=== PATIENT | male | born 1995 | race African-American/Black ===

== ENCOUNTER 2024-05-02 21:36 | Inpatient (IN) | payer OTHER ==
[2024-05-02 22:56] LABS: VENOUS BASE EXCESS -4.3 mmol/L (-2-2); VENOUS O2 SATURATION 64.8 % (70-80); VENOUS PCO2 42.2 mmHg (38-52); VENOUS PH 7.326 (7.310-7.410)
[2024-05-02 23:00] LABS: BASO % 0.7 % (0-2.0); EOS % 1.3 % (0-4.5); HEMOGLOBIN 15.9 GM/dL (11.7-16.9); LYMPH % 7.3 % (8-40); MCHC 33.1 g/dl (32.0-35.9); MEAN CELL VOLUME 81.6 fl (80-96); MEAN PLT VOLUME 9.7 fl (7.5-11.1); MONO % 8.8 % (3.8-10.2); NEUT % 81.9 % (42.8-82.8); PLATELET COUNT 216 10^3/uL (134-434); RBC 5.88 M/mm3 (4.00-5.60); RDW 13.7 % (11.9-15.9); WHITE BLOOD COUNT 7.9 K/mm3 (4.0-10.0)
[2024-05-02 23:03] LABS: INR 0.95 (0.83-1.09); PROTHROMBIN TIME (PATIENT) 10.5 SEC (9.7-13.0)
[2024-05-02 23:14] LABS: CHLORIDE 94 mmol/L (98-107); POTASSIUM 4.9 mmol/L (3.5-5.1); SODIUM 133 mmol/L (136-145)
[2024-05-02 23:16] LABS: ALBUMIN 4.1 g/dl (3.4-5.0); CALCIUM 9.3 mg/dL (8.5-10.1)
[2024-05-02 23:17] LABS: ANION GAP 16 mmol/L (4-13); BLOOD UREA NITROGEN 12.5 mg/dL (7-18); CO2 23 mmol/L (21-32); GLUCOSE,RANDOM 392 mg/dL (74-106)
[2024-05-02 23:20] LABS: CREATININE 1.2 mg/dL (0.55-1.3); SGOT/AST 29 U/L (15-37); SGPT/ALT 28 U/L (13-61)
[2024-05-02 23:22] LABS: BILIRUBIN,TOTAL 0.8 mg/dL (0.2-1); TOT PROT 7.4 g/dl (6.4-8.2)
[2024-05-02 23:23] LABS: ALK PHOS 109 U/L (45-117)
[2024-05-02 23:47] LABS: PH,URINE 5.5 (5.0-8.0); URINE APPEARANCE CLEAR; URINE BILIRUBIN NEGATIVE (NEGATIVE); URINE COLOR YELLOW; URINE GLUCOSE (UA) 3+ (NEGATIVE); URINE KETONE 4+ (NEGATIVE); URINE LEUK ESTERASE NEGATIVE (NEGATIVE); URINE NITRITE NEGATIVE (NEGATIVE); URINE PROTEIN NEGATIVE (NEGATIVE); URINE UROBILINOGEN 0.2 mg/dL (0.2-1.0)
[2024-05-03] MEDS ORDERED: ASPIRIN COATED 81 MG TABLET.EC ONE (00:13)
[2024-05-03] MEDS ORDERED: ACETAMINOPHEN INJECTION 100 ML ONE (00:13)
[2024-05-03] MEDS: SODIUM CHLORIDE 1,000 ML IV STA ×2 (00:20→09:45)
[2024-05-03] MEDS: ASPIRIN COATED 81 MG TABLET.EC PO ONE (00:20)
[2024-05-03] MEDS: ACETAMINOPHEN 1000 MG/100 ML BAG IVPB ONE ×2 (00:20→08:32)
[2024-05-03] MEDS ORDERED: INSULIN REGULAR HUMAN 100 UNITS/ML *VIAL ONE (01:44)
[2024-05-03] MEDS: INSULIN REGULAR HUMAN 100 UNITS/ML *VIAL SQ ONE (01:48)
[2024-05-03 02:25] LABS: POTASSIUM 3.8 mmol/L (3.5-5.1)
[2024-05-03 02:27] LABS: CALCIUM 8.7 mg/dL (8.5-10.1)
[2024-05-03 02:31] LABS: CREATININE 1.1 mg/dL (0.55-1.3)
[2024-05-03] MEDS: SODIUM CHLORIDE 0.9% 500 ML INFUS.BAG IV ONE (02:51)
[2024-05-03 08:28] LABS: POTASSIUM 3.6 mmol/L (3.5-5.1)
[2024-05-03 08:29] LABS: CALCIUM 8.4 mg/dL (8.5-10.1)
[2024-05-03 08:30] LABS: BLOOD UREA NITROGEN 9.5 mg/dL (7-18)
[2024-05-03 08:33] LABS: CREATININE 0.8 mg/dL (0.55-1.3)
[2024-05-03] MEDS ORDERED: DEXTROSE 5%-WATER - 1,000 ML IV SCH (09:00)
[2024-05-03 09:41] LABS: N-TERMINAL BNP 5.6 pg/ml (5-125)
[2024-05-03] MEDS ORDERED: ASPIRIN COATED 81 MG TABLET.EC PO SCH (10:00)
[2024-05-03] MEDS: INSULIN REGULAR HUMAN 100 UNITS/ML *VIAL IVPUSH ONE (10:04)
[2024-05-03] MEDS: POTASSIUM CHLORIDE TABS 20 MEQ TABLET.ER (FP) PO ONE (10:04)
[2024-05-03] MEDS: INSULIN ASPART SLIDING SCALE (NOVOLOG) 1 VIAL SQ SCH (13:10)
[2024-05-03] MEDS: INSULIN (NOVOLOG) ASPART 100 UNITS/ML 10ML VIAL SQ SCH (13:10)
[2024-05-03] MEDS ORDERED: INSULIN ASPART SLIDING SCALE (NOVOLOG) 1 VIAL SQ ONE (13:11)
[2024-05-03 15:19] LABS: POTASSIUM 3.2 mmol/L (3.5-5.1)
[2024-05-03 15:20] LABS: CALCIUM 8.6 mg/dL (8.5-10.1)
[2024-05-03 15:21] LABS: BLOOD UREA NITROGEN 9.2 mg/dL (7-18)
[2024-05-03 15:24] LABS: CREATININE 0.7 mg/dL (0.55-1.3)
[2024-05-03] MEDS: POTASSIUM CHLORIDE ORAL LIQUID 20 MEQ/15 ML PO ONE (18:55)
[2024-05-03] MEDS ORDERED: POTASSIUM CHLORIDE TABS 20 MEQ TABLET.ER (FP) PO ONE (18:56)
[2024-05-03] MEDS: ACETAMINOPHEN 500 MG TABLET (FP) PO ONE (19:38)
[2024-05-03] MEDS: ASPIRIN 81 MG CHEWABLE TABLETS PO ONE (19:38)
[2024-05-03] MEDS: INSULIN (LEVEMIR) 100 UNITS/ML UNITS SQ SCH (21:41)
[2024-05-04 00:27] VITALS: BMI 30.6
[2024-05-04 08:19] LABS: BASO % 0.2 % (0-2.0); EOS % 4.9 % (0-4.5); HEMOGLOBIN 13.1 GM/dL (11.7-16.9); MCH 26.9 pg (25.7-33.7); MCHC 32.8 g/dl (32.0-35.9); MEAN CELL VOLUME 82.1 fl (80-96); MEAN PLT VOLUME 9.8 fl (7.5-11.1); MONO % 17.4 % (3.8-10.2); NEUT % 47.5 % (42.8-82.8); PLATELET COUNT 184 10^3/uL (134-434); RBC 4.87 M/mm3 (4.00-5.60); RDW 13.8 % (11.9-15.9); WHITE BLOOD COUNT 3.2 K/mm3 (4.0-10.0)
[2024-05-04 08:29] LABS: POTASSIUM 3.5 mmol/L (3.5-5.1)
[2024-05-04 08:33] LABS: BLOOD UREA NITROGEN 8.5 mg/dL (7-18); CALCIUM 8.2 mg/dL (8.5-10.1)
[2024-05-04 08:34] LABS: MAGNESIUM 1.6 mg/dL (1.8-2.4)
[2024-05-04 08:36] LABS: PHOSPHOROUS 3.1 mg/dL (2.5-4.9)
[2024-05-04 08:37] LABS: BILIRUBIN,TOTAL 0.4 mg/dL (0.2-1)
[2024-05-04 08:38] LABS: TOT PROT 5.6 g/dl (6.4-8.2)
[2024-05-04] MEDS: metFORMIN HCL 500 MG TABLET (FP) PO SCH (09:39)
[2024-05-04] MEDS ORDERED: EMPAGLIFLOZIN (JARDIANCE) 10 MG TABLET PO SCH (10:00)
[2024-05-04] MEDS: POTASSIUM CHLORIDE ORAL LIQUID 20 MEQ/15 ML PO SCH (12:18)
[2024-05-04] MEDS: LACTATED RINGERS SOLUTION 1,000 ML/1,000 ML INFUS.BAG IV SCH (12:18)
[2024-05-04] MEDS: MAGNESIUM OXIDE 400 MG TABLET (FP) PO ONE (12:18)
[2024-05-04] MEDS: INSULIN (LEVEMIR) 100 UNITS/ML UNITS SQ ONE (12:19)
[2024-05-04 13:14] LABS: CHOLESTEROL 126 mg/dL (50-200)
[2024-05-04 13:15] LABS: LDL CHOLESTEROL (ONLY SJRH) 73 mg/dL (5-100)
[2024-05-04 13:16] LABS: HDL CHOLESTEROL 43 mg/dL (40-60)
[2024-05-04] MEDS: INSULIN (LEVEMIR) 100 UNITS/ML UNITS SQ SCH (21:11)
[2024-05-04] MEDS ORDERED: INSULIN (LEVEMIR) 100 UNITS/ML UNITS SQ SCH (22:00)
[2024-05-05 08:50] LABS: HEMATOCRIT 40.2 % (35.4-49); HEMOGLOBIN 13.2 GM/dL (11.7-16.9); MCH 26.7 pg (25.7-33.7); MCHC 32.9 g/dl (32.0-35.9); MEAN CELL VOLUME 81.1 fl (80-96); MEAN PLT VOLUME 9.2 fl (7.5-11.1); PLATELET COUNT 193 10^3/uL (134-434); RBC 4.95 M/mm3 (4.00-5.60); RDW 14.2 % (11.9-15.9); WHITE BLOOD COUNT 4.6 K/mm3 (4.0-10.0)
[2024-05-05 09:05] VITALS: BP 125/83
[2024-05-05 09:05] LABS: POTASSIUM 3.4 mmol/L (3.5-5.1)
[2024-05-05 09:06] LABS: CALCIUM 8.6 mg/dL (8.5-10.1)
[2024-05-05 09:07] LABS: BLOOD UREA NITROGEN 9.4 mg/dL (7-18); MAGNESIUM 1.6 mg/dL (1.8-2.4)
[2024-05-05 09:10] LABS: CREATININE 0.8 mg/dL (0.55-1.3); PHOSPHOROUS 3.5 mg/dL (2.5-4.9)
[2024-05-05] MEDS: POTASSIUM CHLORIDE TABS 20 MEQ TABLET.ER (FP) PO ONE (11:45)
[2024-05-05] MEDS: NAPH,MB-DB/K PH,MBDB POWDER PACKET PO ONE (11:54)
[2024-05-05] MEDS: MAGNESIUM 1GM/D5W 100ML - 100 ML IVPB IVPB ONE (11:55)
[2024-05-05 13:49] VITALS: PULSE 78; RESP 17; TEMP 98.6
== END 2024-05-05 15:04 | disposition home or self-care (01) | DRG 420 ==
LOC: JER 21:36 → JERBED 05-03 01:34 → J4S 05-04 00:07
PROVIDERS: ADMIT Student in an Organized Health Care Education/Training Program; ATTEND Internal Medicine
DX: E11.65 Type 2 diabetes mellitus with hyperglycemia (principal); R07.89 Other chest pain; R35.89 Other polyuria; R63.1 Polydipsia; R53.1 Weakness; R94.31 Abnormal electrocardiogram [ECG] [EKG]
CPT/HCPCS: 0241U-QW; 36415; 71046-TC-FY; 71275-TC; 80048; 80053; 80061; 81003; 82010; 82550; 82553; 82803; 82962; 83036; 83735; 83880; 84100; 84484; 85025; 85027; 85379; 85610; 85730; 87086; 93005; 93010; 93306-TC; 93970-TC; 99285-25; J0131